=== PATIENT | female | born 2000 | race Hispanic/Latino ===

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

== ENCOUNTER 2021-06-09 18:48 | Emergency (ER) | payer OTHER ==
[2021-06-09] MEDS ORDERED: LIDOCAINE 1% W/EPI 1:100,000 MDV 50 ML VIAL ONE (19:37)
--- NOTE | 2021-06-09 21:04 | ER ---
Nurse's Notes [facility] Name: Jelly Cooper Age: 20 yrs Sex: Female : 2000 Arrival Date: 06/09/2021 Time: 18:52 Bed 20 Private MD: Diagnosis: Laceration without foreign body of left wrist Presentation: 06/09 18:55 Chief complaint: Patient states: i accidently cut myself. i cut myself with a box tw2 cutter accidently and my mom wanted me to get it checked out. Coronavirus screen: At this time, the client does not indicate any symptoms associated with coronavirus-19. Ebola Screen: Patient denies travel to an Ebola-affected area in the 21 days before illness onset. Complicating Factors: There are no complicating factors for this patient. Initial Sepsis Screen: Does the patient meet any 2 criteria? No. Patient's initial sepsis screen is negative. Does the patient have a suspected source of infection? No. Patient's initial sepsis screen is negative. Risk Assessment: Do you want to hurt yourself or someone else? Patient reports no desire to harm self or others. Onset of symptoms was June 09, 2021. 18:55 Method Of Arrival: Ambulatory tw2 18:55 Acuity: AMAYA 4 tw2 Triage Assessment: 18:57 General: Appears in no apparent distress. Behavior is calm, cooperative, appropriate tw2 for age. Pain: Complains of pain in left wrist. Injury Description: Laceration sustained to left wrist. 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 - Social history:: Smoking status: Patient denies any tobacco usage or history of. Screenin:58 Abuse screen: Denies threats or abuse. Nutritional screening: No deficits noted. ll3 Tuberculosis screening: No symptoms or risk factors identified. Fall Risk None identified. Assessment: 19:10 General: Appears uncomfortable, Behavior is calm, cooperative. Pain: Complains of pain ll3 in left wrist Quality of pain is described as throbbing. Neuro: Level of Consciousness is awake, alert, obeys commands, Oriented to person, place, time, situation. Derm: Wound noted left wrist Reports States cut wrist with steel box toe inserter while cutting cardboard box. Musculoskeletal: Circulation, motion, and sensation intact. Injury Description: Laceration sustained to left wrist is clean, superficial, 0.5 to 2.5 cm long, not bleeding. 21:00 Reassessment: Patient is alert, oriented x 3, equal unlabored respirations, skin ll3 warm/dry/pink. ERP at bedside. Vital Signs: 18:55 BP 122 / 86; Pulse 76; Resp 18; Temp 97.9(TE); Pulse Ox 100% on R/A; Pain 3/10; tw2 21:36 BP 136 / 75; Pulse 62; Resp 15; Pulse Ox 100% ; ll3 ED Course: 18:52 Patient arrived in ED. ds1 18:56 Triage completed. tw2 18:57 Arm band placed on. tw2 18:58 Que De La Cruz PA is PHCP. cp 18:58 Ricardo Reid MD is Attending Physician. cp 19:56 Kirt Corona RN is Primary Nurse. ll3 19:58 Patient has correct armband on for positive identification. Bed in low position. Call ll3 light in reach. Side rails up X 1. 19:58 Irrigation of laceration on left wrist irrigated with normal saline Hibiclens solution ll3 Patient tolerated well. 21:36 No provider procedures requiring assistance completed. Patient did not have IV access ll3 during this emergency room visit. Administered Medications: 21:17 Drug: Lidocaine-Epinephrine -1%: (1:100,000) 5 ml {Note: Administered by radha Freed.} Volume: 20 ml; Route: Infiltration; Outcome: 21:04 Discharge ordered by . cp 21:36 Discharged to home ambulatory. ll3 21:36 Condition: stable 21:36 Discharge instructions given to patient, Instructed on discharge instructions, follow up and referral plans. Demonstrated understanding of instructions, follow-up care. 21:37 Patient left the ED. ll3 Signatures: Ortega Roxana ds1 Que De La Cruz PA PA cp Wise, Tara, RN RN tw2 Kirt Corona RN RN ll3
--- NOTE | 2021-06-09 21:04 | EDPHYS ---
Physician Documentation [facility] Name: Jelly Cooper Age: 20 yrs Sex: Female : 2000 Arrival Date: 06/09/2021 Time: 18:52 Bed 20 Private MD: ED Physician Ricardo Reid HPI: 06/09 19:30 This 20 yrs old Female presents to ER via Ambulatory with complaints of cp Laceration - Wrist. 19:30 The patient has a laceration related to: accidental while using cloth cutter and there cp are no complicating factors. The laceration(s) is(are) located on the volar side of left wrist. 19:30 Onset: The symptoms/episode began/occurred just prior to arrival. Associated signs and cp symptoms: The patient has no apparent associated signs or symptoms. 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 - Social history:: Smoking status: Patient denies any tobacco usage or history of. ROS: 19:35 Skin: Positive for laceration(s), of the volar side of left wrist. cp 19:35 Constitutional: Negative for body aches, chills, fever, poor PO intake. cp 19:35 Respiratory: Negative for cough, shortness of breath, wheezing. 19:35 Abdomen/GI: Negative for abdominal pain, nausea, vomiting, and diarrhea. 19:35 MS/extremity: Negative for decreased range of motion, paresthesias. 19:35 All other systems are negative. Exam: 19:40 Constitutional: The patient appears in no acute distress, alert, awake, comfortable, cp non-toxic, well developed, well nourished. 19:40 Musculoskeletal/extremity: Extremities: noted in the left wrist: There is no evidence cp of decreased ROM, ROM: full active range of motion, in the left wrist, Perfusion: the extremity is normally perfused throughout, Sensation intact. Tendon exam: specific tendon testing normal through active and passive range of motion 19:40 Skin: injury, laceration(s), the wound is approximately 2 cm(s), of the volar side of left wrist, that can be described as clean, no foreign body, linear, without bleeding. Vital Signs: 18:55 BP 122 / 86; Pulse 76; Resp 18; Temp 97.9(TE); Pulse Ox 100% on R/A; Pain 3/10; tw2 21:36 BP 136 / 75; Pulse 62; Resp 15; Pulse Ox 100% ; ll3 Laceration: 21:00 Wound Repair of 2cm ( 0.8in ) subcutaneous laceration to volar side of left wrist. cp Linear shaped.. Distal neuro/vascular/tendon intact. Anesthesia: Wound infiltrated with 4 mls of 1% lidocaine w/ Epi. Wound prep: Simple cleansing by me, Wound irrigation by me. Skin closed with 3 4-0 Prolene using interrupted sutures and sterile technique. Dressed with Bacitracin, 4x4's. Patient tolerated well. MDM: 19:02 Patient medically screened. cp 21:04 Data reviewed: vital signs, nurses notes. cp 21:04 Differential diagnosis: superficial laceration, tendon injury, vascular injury. cp Counseling: I had a detailed discussion with the patient and/or guardian regarding: the historical points, exam findings, and any diagnostic results supporting the discharge/admit diagnosis, the need for outpatient follow up, a family practitioner, to return to the emergency department if symptoms worsen or persist or if there are any questions or concerns that arise at home. Response to treatment: the patient's symptoms have markedly improved after treatment. 06/09 19:10 Order name: Dressing - Wound; Complete Time: 21:35 cp 06/09 19:10 Order name: Gloves, Sterile; Complete Time: 21:17 cp 06/09 19:10 Order name: Setup Suture Tray; Complete Time: 21:17 cp 06/09 19:10 Order name: Wound Care: please clean and irrigate wound; Complete Time: 19:39 cp 06/09 21:04 Order name: Dressing - Wound; Complete Time: 21:35 cp Administered Medications: 21:17 Drug: Lidocaine-Epinephrine -1%: (1:100,000) 5 ml {Note: Administered by radha Freed PA.} Volume: 20 ml; Route: Infiltration; Disposition Summary: 06/09/21 21:04 Discharge Ordered Location: Home cp Problem: new cp Symptoms: have improved cp Condition: Stable cp Diagnosis - Laceration without foreign body of left wrist cp Followup: cp - With: Private Physician - When: 7 - 10 days - Reason: Staple/Suture removal Discharge Instructions: - Discharge Summary Sheet cp - Laceration Care, Adult cp - Sutured Wound Care cp Forms: - Medication Reconciliation Form cp - Thank You Letter cp - Antibiotic Education cp - Prescription Opioid Use cp Signatures: Que De La Cruz PA PA cp Wise, Tara RN RN tw2 Kirt Corona RN RN ll3
[2021-06-09 22:41] VITALS: BP 136/75; O2SAT 100
[2021-06-09 22:49] VITALS: TEMP 97.9
== END 2021-06-09 21:37 | disposition home or self-care (01) ==
LOC: ER 18:48
PROC: 0JQH0ZZ Repair Left Lower Arm Subcutaneous Tissue and Fascia, Open Approach (ICD-10-PCS; principal; 2021-06-09)
DX: S61.512A Laceration without foreign body of left wrist, initial encounter (principal); W27.8XXA Contact with other nonpowered hand tool, initial encounter
CPT/HCPCS: 99283

== ENCOUNTER 2021-06-18 13:19 | Emergency (ER) | payer OTHER ==
--- NOTE | 2021-06-18 14:11 | EDPHYS ---
Physician Documentation [facility] Name: Jelly Cooper Age: 20 yrs Sex: Female : 2000 Arrival Date: 06/18/2021 Time: 13:21 Bed 12 Private MD: ED Physician Que Cheng HPI: 06/18 14:10 This 20 yrs old Female presents to ER via Ambulatory with complaints of Suture pm1 Removal. 14:10 The patient has sutures on the left wrist. Previous treatment: The patient was pm1 initially treated 9 day(s) ago, the care was rendered at [facility], Treatment type: The patient's original treatment included sutures. Sutures/dimas progress: The patient has no c/o's. The wound is well-healing with no redness, swelling, discharge, or dehiscence reported. The patient has not experienced similar symptoms in the past. The patient has not recently seen a physician. Historical: - Allergies: 13:28 No Known Allergies; ab2 - PMHx: 13:28 None; ab2 - PSHx: 18:23 Bunion right foot; iw - Immunization history:: Adult Immunizations up to date. - Social history:: Smoking status: Patient denies any tobacco usage or history of. ROS: 14:10 Constitutional: Negative for fever, chills, and weight loss, Cardiovascular: Negative pm1 for chest pain, palpitations, and edema, Respiratory: Negative for shortness of breath, cough, wheezing, and pleuritic chest pain, MS/Extremity: Negative for injury and deformity. 14:10 Neuro: Negative for headache, weakness, numbness, tingling, and seizure. 14:10 Skin: Negative for cellulitis, erythema, Bleeding. 14:10 All other systems are negative. Exam: 14:10 Constitutional: This is a well developed, well nourished patient who is awake, alert, pm1 and in no acute distress. Head/Face: Normocephalic, atraumatic. 14:10 Cardiovascular: Exam negative for acute changes, Rate: normal, Rhythm: regular, Pulses: no pulse deficits are appreciated. 14:10 Respiratory: Exam negative for acute changes, respiratory distress, shortness of breath. 14:10 Skin: Wound recheck: Suture laceration closure: the wound is healing well, the edges are well approximated, no evidence of dehiscence, no drainage, no erythema, no swelling. 14:10 Neuro: Exam negative for acute changes, Orientation: is normal, Mentation: is normal, Motor: is normal, moves all fours. Vital Signs: 13:24 BP 106 / 63; Pulse 73; Resp 16; Temp 97.3(TE); Pulse Ox 99% on R/A; Weight 102.06 kg; ab2 Height 5 ft. 4 in. (162.56 cm); Pain 0/10; 13:24 Body Mass Index 38.62 (102.06 kg, 162.56 cm) ab2 Procedures: 14:13 Suture/Staple removal: Removed 3 sutures, from left wrist, site appears well healed, pm1 Patient tolerated well, Central area of wound not completely healed. Steri-Strips applied with tincture of benzoin. Patient instructed to keep them dry and to all them to fall of on their own . MDM: 13:39 Patient medically screened. pm1 14:10 Data reviewed: vital signs. Data interpreted: Pulse oximetry: on room air is 99 %. pm1 Interpretation: normal. Counseling: I had a detailed discussion with the patient and/or guardian regarding: the historical points, exam findings, and any diagnostic results supporting the discharge/admit diagnosis, the need for outpatient follow up, to return to the emergency department if symptoms worsen or persist or if there are any questions or concerns that arise at home. Administered Medications: No medications were administered Disposition Summary: 06/18/21 14:11 Discharge Ordered Location: Home pm1 Problem: new pm1 Symptoms: have improved pm1 Condition: Stable pm1 Diagnosis - Encounter for removal of sutures pm1 Followup: pm1 - With: Emergency Department - When: As needed - Reason: Worsening of condition Followup: pm1 - With: Private Physician - When: 2 - 3 days - Reason: Recheck today's complaints, Continuance of care, Re-evaluation by your physician Discharge Instructions: - Discharge Summary Sheet pm1 - Suture Removal, Care After pm1 Forms: - Medication Reconciliation Form pm1 - Thank You Letter pm1 - Antibiotic Education pm1 - Prescription Opioid Use pm1 Addendum: 06/22/2021 07:04 Co-signature as Attending Physician, Que Cheng MD I agree with the assessment and c clarke plan of care. Signatures: Que Cheng MD MD cha Williams, Irene, RN RN Leo Hubbard, KESHAV TURBINE TECHNICIAN pm1 Juan Genao
--- NOTE | 2021-06-18 14:11 | ER ---
Nurse's Notes [facility] Name: Jelly Cooper Age: 20 yrs Sex: Female : 2000 Arrival Date: 06/18/2021 Time: 13:21 Bed 12 Private MD: Diagnosis: Encounter for removal of sutures Presentation: 06/18 13:24 Chief complaint: Patient states: "I need to get my sutures removed on my left wrist ab2 .They were placed last 06/09/21. 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 Coronavirus screen: Vaccine status: Patient reports receiving the 2nd dose of the covid vaccine. Client denies travel out of the [place] in the last 14 days. At this time, the client does not indicate any symptoms associated with coronavirus-19. Ebola Screen: Patient negative for fever greater than or equal to 101.5 degrees Fahrenheit, and additional compatible Ebola Virus Disease symptoms Patient denies exposure to infectious person. Patient denies travel to an Ebola-affected area in the 21 days before illness onset. No symptoms or risks identified at this time. Initial Sepsis Screen: Does the patient meet any 2 criteria? No. Patient's initial sepsis screen is negative. Does the patient have a suspected source of infection? No. Patient's initial sepsis screen is negative. Risk Assessment: Do you want to hurt yourself or someone else? Patient reports no desire to harm self or others. Onset of symptoms is unknown. 13:24 Method Of Arrival: Ambulatory ab2 13:24 Acuity: AMAYA 4 ab2 Triage Assessment: 13:28 General: Appears in no apparent distress. comfortable, Behavior is calm, cooperative, ab2 appropriate for age. Pain: Denies pain. Derm: Parent/caregiver reports the patient having Sutures that need removed to the left wrist. Historical: - Allergies: 13:28 No Known Allergies; ab2 - PMHx: 13:28 None; ab2 - PSHx: 18:23 Bunion right foot; iw - Immunization history:: Adult Immunizations up to date. - Social history:: Smoking status: Patient denies any tobacco usage or history of. Screenin:39 Abuse screen: Denies threats or abuse. Denies injuries from another. Nutritional ab2 screening: No deficits noted. Tuberculosis screening: No symptoms or risk factors identified. Fall Risk None identified. Assessment: 13:39 General: Appears in no apparent distress. comfortable, Behavior is calm, cooperative, ab2 appropriate for age. Pain: Denies pain. Neuro: Level of Consciousness is awake, alert, obeys commands, Oriented to person, place, time, situation, Appropriate for age Ed Tech are equal bilaterally Moves all extremities. Gait is steady, Speech is normal, Facial symmetry appears normal. Cardiovascular: No deficits noted. Respiratory: No deficits noted. Airway is patent Respiratory effort is even, unlabored, Respiratory pattern is regular, symmetrical. GI: No deficits noted. No signs and/or symptoms were reported involving the gastrointestinal system. : No deficits noted. No signs and/or symptoms were reported regarding the genitourinary system. Derm: Reports sutures needing removed on Left wrist. Vital Signs: 13:24 BP 106 / 63; Pulse 73; Resp 16; Temp 97.3(TE); Pulse Ox 99% on R/A; Weight 102.06 kg; ab2 Height 5 ft. 4 in. (162.56 cm); Pain 0/10; 13:24 Body Mass Index 38.62 (102.06 kg, 162.56 cm) ab2 ED Course: 13:21 Patient arrived in ED. rg4 13:28 Triage completed. ab2 13:29 Arm band placed on right wrist. ab2 13:39 Leo Mari NP is PHCP. pm1 13:39 Que Cheng MD is Attending Physician. pm1 13:40 Patient has correct armband on for positive identification. Bed in low position. Call ab2 light in reach. Side rails up X2. 13:40 No provider procedures requiring assistance completed. ab2 14:35 Emily Min, KEN is Primary Nurse. iw 14:35 Patient did not have IV access during this emergency room visit. iw Administered Medications: No medications were administered Outcome: 14:11 Discharge ordered by . pm1 14:35 Discharged to home iw 14:35 Condition: good 14:35 Discharge instructions given to patient, Instructed on discharge instructions, follow up and referral plans. 14:36 Patient left the ED. iw Signatures: Emily Min RN RN iw Leo Mari NP CHIEF MECHANICAL ENGINEER pm1 Kayleigh Montoya rg4 Juan Genao ab2
[2021-06-18 15:18] VITALS: BP 106/63; TEMP 97.3; O2SAT 99
== END 2021-06-18 14:36 | disposition home or self-care (01) ==
LOC: ER 13:19
DX: Z48.02 Encounter for removal of sutures (principal)
CPT/HCPCS: 99281